=== PATIENT | male | born 1970 | race Caucasian/White ===

== ENCOUNTER 2018-06-01 18:54 | Emergency (ER) | payer MEDICAID ==
[~2018-06-01] VITALS: Ht 182.9 cm; Wt 74.3 kg
[2018-06-01] MEDS ORDERED: ondansetron/PF 4mg/2ml inj IV ONE (19:35)
[2018-06-01] MEDS ORDERED: normal saline 1000ML IV soln IVB ONE (19:35)
[2018-06-01] MEDS ORDERED: morphine 4 MG/ML inj SYRINge IV PRN (19:35)
[2018-06-01 20:15] LABS: BASOPHILS % (AUTO) 0.3 % (0-1); EOSINOPHILS # (AUTO) 0.3 X10'3 (0-0.9); EOSINOPHILS % (AUTO) 3.3 % (0-6); HEMATOCRIT 44.3 % (42.0-52.0); HEMOGLOBIN 14.8 g/dl (14.0-17.9); LYMPHOCYTES # (AUTO) 1.3 X10'3 (1.1-4.8); LYMPHOCYTES % (AUTO) 13.5 % (21-51); MEAN CORPUSCULAR HGB CONC 33.4 % (33.0-36.5); MEAN CORPUSCULAR VOLUME 92.9 FL (78-98); MEAN PLATELET VOLUME 6.9 FL (7.4-10.4); MONOCYTES # (AUTO) 0.7 X10'3 (0-0.9); MONOCYTES % (AUTO) 7.8 % (2-12); NEUTROPHILS # (AUTO) 7.1 X10'3 (1.8-7.7); NEUTROPHILS % (AUTO) 75.1 % (42-75); PLATELET COUNT 297 X10'3 (140-440); RED BLOOD COUNT 4.77 X10'6 (4.70-6.10); RED CELL DISTRIBUTION WIDTH 14.3 % (11.5-14.5); WHITE BLOOD COUNT 9.4 X10'3 (4.5-11.0)
[2018-06-01 20:29] LABS: ALANINE AMINOTRANSFERASE 42 U/L (12-78); ALBUMIN 3.6 G/DL (3.4-5.0); ALBUMIN/GLOBULIN RATIO 0.9 (1.1-1.5); ALKALINE PHOSPHATASE 117 IU/L (46-116); ANION GAP 5 (8-16); ASPARTATE AMINO TRANSFERASE 22 U/L (10-37); BILIRUBIN,TOTAL 0.2 MG/DL (0.1-1.0); BLOOD UREA NITROGEN 14 MG/DL (7-18); CHLORIDE 103 MMOL/L (99-107); CREATININE 1.27 MG/DL (0.60-1.10); GLUCOSE 90 MG/DL (70-104); POTASSIUM 3.8 MMOL/L (3.5-5.1); SODIUM 142 MMOL/L (135-145); TOTAL CARBON DIOXIDE 34.4 MMOL/L (24-32); TOTAL PROTEIN 7.6 G/DL (6.4-8.2); eGFR 60 ML/MIN
[2018-06-01] MEDS ORDERED: TETanus/Pertussis (Acell)/Diphther VAC/PF (Tdap-Adult) 0.5ml syringe IM ONE (20:30)
[2018-06-01] MEDS ORDERED: HYDR-4383 PO (20:34)
[2018-06-01] MEDS ORDERED: NAPR-56 PO (20:34)
[2018-06-01] MEDS ORDERED: ketorolac trometh. 30mg/ml inj. IV ONE (20:35)
[2018-06-01 20:57] VITALS: BP 140/90
== END 2018-06-01 21:01 | disposition home or self-care (01) ==
LOC: ER 18:54
DX: S63.591A Other specified sprain of right wrist, initial encounter (principal); S00.83XA Contusion of other part of head, initial encounter; S60.811A Abrasion of right wrist, initial encounter; R10.33 Periumbilical pain; R10.31 Right lower quadrant pain; V29.88XA Motorcycle rider (driver) (passenger) injured in other specified transport accidents, initial encounter; Y93.55 Activity, bike riding; Y92.89 Other specified places as the place of occurrence of the external cause; Y99.9 Unspecified external cause status
CPT/HCPCS: 29125; 36415; 70450; 70486; 73110; 74176; 80053; 85025; 90471; 90715; 96374; 96375; 99285; J1885; J2270; J2405

== ENCOUNTER 2020-08-03 19:31 | Emergency (ER) | payer MEDICAID, OTHER ==
[~2020-08-03] VITALS: Ht 182.9 cm; Wt 75.0 kg
[~2020-08-03 19:31] MED LIST: HYDR-4383 PO
[2020-08-03 19:34] VITALS: BP 154/95
[2020-08-03] MEDS ORDERED: LIDOcaine 1% W/epiNEPHrine 1:200,000 10ml vial IJ ONE (20:40)
[2020-08-03] MEDS ORDERED: TETanus/Pertussis (Acell)/Diphther VAC/PF (Tdap-Adult) 0.5ml syringe IMVAC ONE (20:40)
[2020-08-03] MEDS ORDERED: CEPH250T PO (21:24)
== END 2020-08-03 21:36 | disposition home or self-care (01) ==
LOC: ER 19:31
DX: L02.413 Cutaneous abscess of right upper limb (principal); Z72.89 Other problems related to lifestyle; Z79.2 Long term (current) use of antibiotics; Z79.899 Other long term (current) drug therapy
CPT/HCPCS: 10060; 90471; 90715; 99283

== ENCOUNTER 2021-05-29 05:29 | Emergency (ER) | payer MEDICAID ==
[~2021-05-29] VITALS: Ht 182.9 cm; Wt 75.0 kg
[2021-05-29 05:38] VITALS: BP 151/88
[2021-05-29] MEDS ORDERED: HYDROcodone/acetaminophen 5mg/325mg tablet PO ONE (05:45)
[2021-05-29] MEDS ORDERED: cephalexin 500mg capsule PO ONE (06:15)
[2021-05-29] MEDS ORDERED: sulfamethoxazole/trimethoprim DS (800/160mg) tablet PO ONE (06:15)
[2021-05-29] MEDS ORDERED: LIDOcaine 1% W/epiNEPHrine 1:200,000 10ml vial IJ ONE (06:15)
[2021-05-29] MEDS ORDERED: TETanus/Pertussis (Acell)/Diphther VAC/PF (Tdap-Adult) 0.5ml syringe IMVAC ONE (06:15)
[2021-05-29] MEDS ORDERED: LIDOcaine 1% w/epiNEPHrine 1:200,000 30ml vial IJ ONE (06:45)
[2021-05-29] MEDS ORDERED: CEPH-585 PO (07:18)
[2021-05-29] MEDS ORDERED: SULF1TAB49 PO (07:18)
[2021-05-29] MEDS ORDERED: HYDR-3972 PO (07:18)
== END 2021-05-29 07:33 | disposition home or self-care (01) ==
LOC: ER 05:30
DX: L02.511 Cutaneous abscess of right hand (principal); M79.645 Pain in left finger(s); Z20.3 Contact with and (suspected) exposure to rabies; Z72.89 Other problems related to lifestyle; Z79.899 Other long term (current) drug therapy
CPT/HCPCS: 26010; 90471; 90715; 99284